=== PATIENT | male | born 1990 | race Two or more races ===

== ENCOUNTER → 2017-09-17 | Outpatient (CLI) | payer OTHER | END | disposition home or self-care (01) | LOC: MRI 09:34 | PROVIDERS: ATTEND Emergency Medicine | DX: S80.01XD Contusion of right knee, subsequent encounter (principal); M47.897 Other spondylosis, lumbosacral region; M51.27 Other intervertebral disc displacement, lumbosacral region; X58.XXXD Exposure to other specified factors, subsequent encounter | CPT/HCPCS: 72148 ==